=== PATIENT | male | born 1965 ===

== ENCOUNTER → 2020-08-08 | Day surgery (SDC) | payer OTHER ==
[~2020-08-08] MED LIST: ALEVE220 M1 PO; COZAAR100 MG PO; DUI500 PO; ULTRACET PO; ULTRAM50 MG PO
== END | disposition home or self-care (01) ==
LOC: ADM 08-02 08:15 → CIR.AMB 06:32
PROVIDERS: ATTEND Orthopaedic Surgery
DX: S83.241A Other tear of medial meniscus, current injury, right knee, initial encounter (principal); S83.281A Other tear of lateral meniscus, current injury, right knee, initial encounter; M23.41 Loose body in knee, right knee; M22.41 Chondromalacia patellae, right knee; Z20.822 Contact with and (suspected) exposure to COVID-19